=== PATIENT | male | born 1940 | race Caucasian/White ===

== ENCOUNTER 2018-06-07 13:33 | Emergency (ER) | payer OTHER ==
[2018-06-07 16:33] LABS: Albumin 4.3 g/dL (3.4-5.0); Bilirubin Direct 0.1 mg/dL (0-0.2); Bilirubin Total 0.5 mg/dL (0.2-1.0); Potassium 4.2 mmol/L (3.5-5.1); Protein, Total 7.4 g/dL (6.4-8.2)
[2018-06-07 16:41] LABS: Absolute Lymphocytes (CBC) 3.7 K/uL (0.7-4.9); Absolute Monocytes 0.6 K/uL (0.1-1.3); Absolute Neutrophil 4.7 K/uL (1.8-8.0); Basophils % 0.3 % (0-1.3); Eosinophils % 3.1 % (0-4.4); Hematocrit 46.2 % (39.6-49.0); Lymphocytes % 39.7 % (15.3-44.8); MPV 8.8 fL (7.6-11.3); Monocytes % 6.4 % (3.3-12.3); RBC Red Blood Cell Count 4.71 M/uL (4.33-5.43)
--- NOTE | 2018-06-07 17:34 | RAD REPORT ---
EXAM DESCRIPTION: CT - Abdomen Pelvis W Contrast - 06/07/2018 5:09 pm CLINICAL HISTORY: Abdominal pain/right lower quadrant pain COMPARISON: none. TECHNIQUE: Computed axial tomography of the abdomen pelvis was obtained. 100 cc Isovue-300 was admin istered intravenously. Oral contrast was not requested which limits evaluation of bowel. All CT scans are performed using dose optimization technique as appropriate and may include automated exposure control or mA/KV adjustment according to patient size. FINDINGS: Small hepatic cysts Spleen, pancreas, right kidney and adrenals appear unremarkable. Two left renal cysts measuring about 3.8 centimeters There is no evidence of diverticulitis. Normal appendix Mild bladder wall thickening. Mild prostate enlargement Duodenal diverticulum Tiny umbilical hernia. Spondylosis involves the lumbar spine resulting spinal stenosis IMPRESSION: Mild bladder wall thickening Left renal cysts.
--- NOTE | 2018-06-07 18:03 | ER ---
Nurse's Notes [facility] Name: Keshawn Ho Age: 77 yrs Sex: Male : 1940 Arrival Date: 06/07/2018 Time: 13:37 Bed 27 Private MD: Diagnosis: Unspecified abdominal pain Presentation: 06/07 13:38 Presenting complaint: Patient states: RLQ pain started Tuesday and has increased since sv then. c/o constipation and took MOM and helped "clear me out." Denies fever/chills, n/v. Transition of care: patient was not received from another setting of care. Onset of symptoms was June 05, 2018. Care prior to arrival: None. 13:38 Method Of Arrival: Ambulatory sv 13:38 Acuity: NOEL 3 sv 14:59 Risk Assessment: Do you want to hurt yourself or someone else? Patient reports no rv desire to harm self or others. Initial Sepsis Screen: Does the patient meet any 2 criteria? No. Patient's initial sepsis screen is negative. Does the patient have a suspected source of infection? No. Patient's initial sepsis screen is negative. Historical: - Allergies: 13:40 Ancef; sv - PMHx: 13:40 Hypertension; High Cholesterol; Thyroid problem; sv - PSHx: 13:40 Hernia repair; sinus; foot; eye; sv - Immunization history:: Adult Immunizations up to date. - Social history:: Smoking status: unknown. - Ebola Screening: : Patient negative for fever greater than or equal to 101.5 degrees Fahrenheit, and additional compatible Ebola Virus Disease symptoms Patient denies exposure to infectious person Patient denies travel to an Ebola-affected area in the 21 days before illness onset. Screenin:59 Abuse screen: Denies threats or abuse. Denies injuries from another. Nutritional rv screening: No deficits noted. Tuberculosis screening: No symptoms or risk factors identified. Fall Risk None identified. Assessment: 14:57 General: Appears in no apparent distress. comfortable. General: Behavior is calm, rv cooperative. Pain: Complains of pain in anterior aspect of right lateral abdomen Pain currently is 3 out of 10 on a pain scale. at worst was 9 out of 10 on a pain scale. Quality of pain is described as aching, sharp, Pain began suddenly, 1 day ago. Is intermittent. Neuro: Level of Consciousness is awake, alert, obeys commands, Oriented to person, place, time, situation. Cardiovascular: Capillary refill < 3 seconds. Respiratory: Airway is patent. GI: No signs and/or symptoms were reported involving the gastrointestinal system. : No signs and/or symptoms were reported regarding the genitourinary system. EENT: No signs and/or symptoms were reported regarding the EENT system. Derm: Skin is intact, Skin is. Musculoskeletal: No signs and/or symptoms reported regarding the musculoskeletal system. 17:09 Reassessment: Patient appears in no apparent distress at this time. Patient and/or rv family updated on plan of care and expected duration. Pain level reassessed. Patient is alert, oriented x 3, equal unlabored respirations, skin warm/dry/pink. Vital Signs: 13:40 BP 135 / 64; Pulse 69; Resp 18; Temp 97.8; Pulse Ox 98% ; Weight 122.47 kg; Height 6 sv ft. 3 in. (190.50 cm); Pain 3/10; 15:00 BP 128 / 66 LA; Pulse 58; Resp 16 S; Pulse Ox 96% on R/A; rv 15:30 BP 121 / 63 LA; Pulse 55; Resp 18 S; Pulse Ox 96% on R/A; rv 16:14 BP 112 / 65; Pulse 74; Resp 16; Pulse Ox 98% ; lt1 16:30 BP 122 / 52 LA; Pulse 62; Resp 16 S; Pulse Ox 100% on R/A; rv 17:30 BP 129 / 67 LA; Pulse 56; Resp 16 S; Pulse Ox 98% on R/A; rv 18:32 BP 143 / 71 LA; Pulse 62; Resp 16 S; Pulse Ox 96% on R/A; rv 13:40 Body Mass Index 33.75 (122.47 kg, 190.50 cm) sv ED Course: 13:37 Patient arrived in ED. tw3 13:39 Triage completed. sv 13:41 Arm band placed on. sv 14:59 Patient has correct armband on for positive identification. Bed in low position. Call rv light in reach. Side rails up X 1. Pulse ox on. NIBP on. 15:15 Jim Gonsalez PA is PHCP. [facility] 15:15 Tito Peter MD is Attending Physician. [facility] 15:53 Radiology exam delayed due to lab results not completed at this time. (BUN/Creatinine). [facility] 16:09 Initial lab(s) drawn, by me, sent to lab. Inserted saline lock: 20 gauge in right lt1 antecubital area, using aseptic technique. 16:[address] 2 17:[address] completed. Patient tolerated procedure well. Patient moved back from CT. ks 17:09 CT Abd/Pelvis - W/Contrast In Process Unspecified. EDMS 18:02 Tito Tran MD is Referral Physician. jmm 18:02 Isis Jeff MD is Referral Physician. jmm 18:33 No provider procedures requiring assistance completed. IV discontinued, bleeding rv controlled, No redness/swelling at site. Pressure dressing applied. Administered Medications: No medications were administered Outcome: 18:02 Discharge ordered by . [facility] 18:34 Discharged to home ambulatory. rv 18:34 Condition: good 18:34 Discharge instructions given to patient, Instructed on discharge instructions, follow up and referral plans. Demonstrated understanding of instructions, follow-up care. 18:34 Patient left the ED. rv Signatures: Dispatcher [employer] EDDC Olivia Delatorre, RN RN Jim Perez PA PA Alberto Lennon Tia tw3 Tala Edmonds 2 Pedro Bustamante, USHA RN Susan Navarrete lt1
--- NOTE | 2018-06-07 18:03 | EDPHYS ---
Physician Documentation [facility] Name: Keshawn Ho Age: 77 yrs Sex: Male : 1940 Arrival Date: 06/07/2018 Time: 13:37 Bed 27 Private MD: ED Physician Tito Peter HPI: 06/07 15:50 This 77 yrs old Male presents to ER via Ambulatory with complaints of Side jmm Pain. 15:50 The patient presents with abdominal pain right lower quadrant. Onset: The jmm symptoms/episode began/occurred 2 day(s) ago. Associated signs and symptoms: Pertinent positives: diarrhea. 15:50 The symptoms do not radiate. The symptoms are described as sharp. jmm 15:50 Modifying factors: The symptoms are alleviated by nothing, the symptoms are aggravated jmm by. This is a 77 year old male with a history of htn, hlp, that presents to the ED with complaints of right lower abdominal pain which is sharp and intermittent. Patient states he took milk of magnesium which gave him 5 loose bowel movements last night. Patient denies vomiting. Surgical history of inguinal hernia repair. . Historical: - Allergies: 13:40 Ancef; sv - PMHx: 13:40 Hypertension; High Cholesterol; Thyroid problem; sv - PSHx: 13:40 Hernia repair; sinus; foot; eye; sv - Immunization history:: Adult Immunizations up to date. - Social history:: Smoking status: unknown. - Ebola Screening: : Patient negative for fever greater than or equal to 101.5 degrees Fahrenheit, and additional compatible Ebola Virus Disease symptoms Patient denies exposure to infectious person Patient denies travel to an Ebola-affected area in the 21 days before illness onset. ROS: 15:50 Constitutional: Negative for fever, chills, and weight loss, Cardiovascular: Negative jmm for chest pain, palpitations, and edema, Respiratory: Negative for shortness of breath, cough, wheezing, and pleuritic chest pain. 15:50 Abdomen/GI: Positive for abdominal pain, diarrhea, constipation. 15:50 All other systems are negative. Exam: 15:50 Constitutional: This is a well developed, well nourished patient who is awake, alert, jmm and in no acute distress. Head/Face: atraumatic. Eyes: EOMI, no conjunctival erythema appreciated ENT: Moist Mucus Membranes Neck: Trachea midline, Supple Chest/axilla: Normal chest wall appearance and motion. Cardiovascular: Regular rate and rhythm. No edema appreciated Respiratory: Normal respirations, no respiratory distress appreciated 15:50 Back: Normal ROM Skin: General appearance color normal MS/ Extremity: Moves all extremities, no obvious deformities appreciated, no edema noted to the lower extremities Neuro: Awake and alert, normal gait Psych: Behavior is normal, Mood is normal, Patient is cooperative and pleasant 15:50 Abdomen/GI: Inspection: abdomen appears normal, Bowel sounds: normal, Palpation: soft, mild abdominal tenderness, in the right lower quadrant. Vital Signs: 13:40 BP 135 / 64; Pulse 69; Resp 18; Temp 97.8; Pulse Ox 98% ; Weight 122.47 kg; Height 6 sv ft. 3 in. (190.50 cm); Pain 3/10; 15:00 BP 128 / 66 LA; Pulse 58; Resp 16 S; Pulse Ox 96% on R/A; rv 15:30 BP 121 / 63 LA; Pulse 55; Resp 18 S; Pulse Ox 96% on R/A; rv 16:14 BP 112 / 65; Pulse 74; Resp 16; Pulse Ox 98% ; lt1 16:30 BP 122 / 52 LA; Pulse 62; Resp 16 S; Pulse Ox 100% on R/A; rv 17:30 BP 129 / 67 LA; Pulse 56; Resp 16 S; Pulse Ox 98% on R/A; rv 18:32 BP 143 / 71 LA; Pulse 62; Resp 16 S; Pulse Ox 96% on R/A; rv 13:40 Body Mass Index 33.75 (122.47 kg, 190.50 cm) sv MDM: 15:42 Patient medically screened. [facility] 18:01 Data reviewed: vital signs, nurses notes. Counseling: I had a detailed discussion with [facility] the patient and/or guardian regarding: the historical points, exam findings, and any diagnostic results supporting the discharge/admit diagnosis, lab results, radiology results, the need for outpatient follow up, to return to the emergency department if symptoms worsen or persist or if there are any questions or concerns that arise at home. ED course: I discussed the patient CT results along with need for follow up with urology and GI. Patient otherwise given strict return precautions. Patient understood and agrees with the plan of care. . 06/07 15:49 Order name: Basic Metabolic Panel; Complete Time: 16:42 [facility] 06/07 15:49 Order name: CBC with Diff; Complete Time: 17:07 [facility] 06/07 15:49 Order name: Creatinine for Radiology; Complete Time: 16:42 [facility] 06/07 15:49 Order name: Hepatic Function; Complete Time: 16:42 [facility] 06/07 15:49 Order name: Lipase; Complete Time: 16:42 [facility] 06/07 15:49 Order name: IV Saline Lock; Complete Time: 16:00 [facility] 06/07 15:49 Order name: Labs collected and sent; Complete Time: 16:00 [facility] 06/07 15:49 Order name: Urine Dipstick-Ancillary (obtain specimen); Complete Time: 16:00 [facility] 06/07 15:49 Order name: CT Abd/Pelvis - W/Contrast; Complete Time: 17:39 [facility] 06/07 17:27 Order name: Urine Dipstick--Ancillary (enter results) [id number] Administered Medications: No medications were administered Disposition: 06/08 07:27 Co-signature as Attending Physician, Tito Peter MD I agree with the assessment and wa plan of care. Disposition: 06/07/18 18:02 Discharged to Home. Impression: Unspecified abdominal pain. - Condition is Stable. - Discharge Instructions: Abdominal Pain, Adult. - Medication Reconciliation Form, Thank You Letter, Antibiotic Education, Prescription Opioid Use form. - Follow up: Private Physician; When: 2 - 3 days; Reason: Recheck today's complaints, Continuance of care, Re-evaluation by your physician. Follow up: Tito Tran MD; When: 2 - 3 days; Reason: Recheck today's complaints, Continuance of care, Re-evaluation by your physician. Follow up: Isis Jeff MD; When: 2 - 3 days; Reason: Recheck today's complaints, Continuance of care, Re-evaluation by your physician. Signatures: Dispatcher [employer] Olivia Hewitt, USHA RN Jim Perez PA PA jmm Appiah, William, MD MD wa Vicente, Ronaldo, RN RN rv Corrections: (The following items were deleted from the chart) 06/07 17:25 17:16 URINE DIPSTICK--ANCILLARY+U.LAB.BRZ ordered. EDIA EDMS 18:02 18:02 06/07/2018 18:02 Discharged to Home. Impression: Unspecified abdominal pain. jmm Condition is Stable. Forms are Medication Reconciliation Form, Thank You Letter, Antibiotic Education, Prescription Opioid Use. Follow up: Private Physician; When: 2 - 3 days; Reason: Recheck today's complaints, Continuance of care, Re-evaluation by your physician. [facility] 18:34 18:02 06/07/2018 18:02 Discharged to Home. Impression: Unspecified abdominal pain. rv Condition is Stable. Discharge Instructions: Abdominal Pain, Adult. Forms are Medication Reconciliation Form, Thank You Letter, Antibiotic Education, Prescription Opioid Use. Follow up: Private Physician; When: 2 - 3 days; Reason: Recheck today's complaints, Continuance of care, Re-evaluation by your physician. Follow up: Tito Tran; When: 2 - 3 days; Reason: Recheck today's complaints, Continuance of care, Re-evaluation by your physician. Follow up: Isis Jeff; When: 2 - 3 days; Reason: Recheck today's complaints, Continuance of care, Re-evaluation by your physician. [facility]
[2018-06-07 20:23] LABS: Urine Blood TRACE (NEG); Urine Glucose NEGATIVE (NEG); Urine Protein NEGATIVE (NEG); Urine pH 6.5 (5.0-7.0)
== END 2018-06-07 18:34 | disposition home or self-care (01) ==
LOC: ER 13:33
DX: R10.31 Right lower quadrant pain (principal); I10 Essential (primary) hypertension; Z88.8 Allergy status to other drugs, medicaments and biological substances
CPT/HCPCS: 85025; 80048; 36415; 80076; 81003; 83690; 74177; Q9967; 99284

== ENCOUNTER 2018-06-21 09:15 | Day surgery (SDC) | payer OTHER ==
[2018-06-19 09:04] LABS: Absolute Lymphocytes (CBC) 3.7 K/uL (0.7-4.9); Absolute Monocytes 0.6 K/uL (0.1-1.3); Absolute Neutrophil 3.4 K/uL (1.8-8.0); Basophils % 0.4 % (0-1.3); Eosinophils % 3.3 % (0-4.4); Hematocrit 47.7 % (39.6-49.0); Lymphocytes % 46.4 % (15.3-44.8); MPV 8.8 fL (7.6-11.3); RBC Red Blood Cell Count 4.82 M/uL (4.33-5.43)
[2018-06-19 09:21] LABS: Potassium 4.5 mmol/L (3.5-5.1)
--- NOTE | 2018-06-19 09:24 | RAD REPORT ---
EXAM DESCRIPTION: RAD - Chest Pa And Lat (2 Views) - 06/19/2018 8:48 am CLINICAL HISTORY: Preop chest, pending hernia repair COMPARISON: CT chest May 2015 TECHNIQUE: PA and lateral views of the chest were obtained. FINDINGS: The lungs are clear. Interstitial pattern is similar to the CT study. Heart size is mignon l and central vasculature is within normal limits. No pleural effusion or pneumothorax seen. No acu te bony finding noted. No aortic abnormality. IMPRESSION: No acute cardiopulmonary process.
[2018-06-19 09:51] LABS: Blood Morphology Comment NOT SEEN (NOT SEEN); Platelet Estimate ADEQ
--- NOTE | 2018-06-20 11:33 | EKG ---
Test Date: 2018-06-19 Test Time: 08:28:44 Ore Buyer: NAN MEASUREMENT RESULTS: Intervals: Rate: 73 NV: 152 QRSD: 92 QT: 406 QTc: 447 [place]: P: 40 NV: 152 QRS: -29 T: -5 INTERPRETIVE STATEMENTS: Normal sinus rhythm Normal ECG No previous ECG available for comparison Electronically Signed On 06-19-18 10:47:56 CDT by Ric Mendoza
[2018-06-21] MEDS ORDERED: CIPROFLOXACIN 400mg IV 400 MG/200 ML BAG IV ONE (10:03)
[2018-06-21] MEDS ORDERED: Ringers Lactate 1,000 ML IV ONE (10:03)
[2018-06-21] MEDS ORDERED: FENTANYL CITR 100 MCG/2 ML ONE (13:00)
[2018-06-21] MEDS ORDERED: MIDAZOLAM HCL 2 MG/2 ML INJ ONE (13:00)
[2018-06-21] MEDS ORDERED: LIDOCAINE 2% MPF 5 ML VIAL ONE (13:00)
[2018-06-21] MEDS ORDERED: PROPOFOL 200 MG/20 ML VIAL IV ONE (13:00)
[2018-06-21] MEDS ORDERED: ONDANSETRON 4 MG/2 ML VIAL ONE (13:01)
[2018-06-21] MEDS ORDERED: ROCURONIUM 50 MG/5 ML VIAL IV ONE (13:01)
--- NOTE | 2018-06-21 13:49 | P.BOP ---
Preoperative diagnosis: RLQ abd pain, incarcerated umbilcal hernia Postoperative diagnosis: same plus retrocecal appendicitis Primary procedure: 1. Diagnostic laparoscopy, 2. appendectomy, Secondary procedure: 3. Open repair of incarcerated umbilcal hernia Specimen: consuelo, hernia sac Findings: as above, see dictation Anesthesia: General Complications: None Transferred to: Recovery Room Condition: Good
[2018-06-21] MEDS ORDERED: GLYCOPYRROLATE 0.2 MG/ML SYR ONE ×4 (14:04→14:43)
[2018-06-21] MEDS ORDERED: NEOSTIGMINE 1 MG/ML -10 ML VIAL ONE (14:04)
[2018-06-21] MEDS: HYDROMORPHONE HCL 1 MG/ML INJ ONE ×4 (14:05→14:36)
--- NOTE | 2018-06-22 06:39 | OP ---
Date of Procedure: 06/21/2018 Surgeon: German Huston MD Preoperative Diagnoses: Right lower quadrant abdominal pain, incarcerated umbilical hernia. Postoperative Diagnoses: Right lower quadrant abdominal pain, incarcerated umbilical hernia, retroce sheree appendicitis asymmetrical in shape and color. Procedures: 1.Diagnostic laparoscopy. 2.Appendectomy. 3.Open repair of an incarcerated umbilical hernia. Anesthesia: General plus local. Specimen: Appendix and hernia sac. Findings: The patient has incarcerated omentum in the hernia, that was carefully fixed. At the area of the right lower quadrant, identify weak areas of the inguinal region with no bowel not ing coming through any hernias at this moment. Small indentation there may be the beginning of a sma ll tiny hernia. We cannot clearly identify it. Since when we put the camera through, it just does n ot go through a tunnel. On the area of the appendix, noted the mid appendix to be larger than the pr oximal and distal. Etiology of that is unknown. It is asymmetrical in shape and color with some inj ection and erythema over that area. For that reason, the appendix was removed. That is a retrocecal appendix. He has been having right lower quadrant pain in that area, so it is difficult to say that is not related to. The ascending, transverse, descending colon, no extraluminal masses. Small roland l with no extraluminal masses seen. The liver with no masses seen, at least extra capsule. The stom ach, soft and compressible. Indications: 78-year-old patient, who comes to us with right lower quadrant abdominal robert n, several times, severe enough to sent him to the ER. Etiology of that is unknown. Keep happening. He is concerned about appendicitis because his had a ruptured appendix and it was unable to be , so he is concerned about that. He is also being careful with heavy lifting, but he has n ot lifted anything and the pain continued back and poor. He also was found to have umbilical hernia. It is tender, although it does not really explain all the pain in the right lower quadrant. The be nefits, alternatives, and risks of diagnostic laparoscopy, repair of an incarcerated umbilical hernia with possible appendectomy were fully explained to the patient, which include but are not limited to infection, bleeding, damage to adjacent structures, anesthesia complication, negative appendix, nega tive exploration, recurrence, ME, even . He also understands this may not relieve any symptoms. He preferred the appendix to be removed we have any other than normal there since that m ay confuse in the future by not identifying properly and diagnosing properly right lower quadrant robert n. He signed a consent. Description Of Procedure: The patient was brought to the operating room, placed in supine position. Anesthesia was done without complication. Abdominal area was prepped and draped in usual sterile fa shion. Local anesthesia was applied followed by injection of the skin with local anesthetic. An inc ision was made in the skin. Incision was carried down to subcutaneous tissue. We noticed the umbili sheree hernia present. Hernia sac was removed from umbilical skin. The hernia sac was opened, noted in carcerated omentum. We reduced some of the adhesions of omentum to the hernia sac, reduced omentum _ viable, removed the hernia sac. Expanded the incision a little bit to allow us to clean th e fascia and I put a Kelsea trocar in that area. At that moment, I proceeded to do the diagnostic la p, with the finding described above. A 5-mm trocar was placed in the suprapubic area, another one in the left lower quadrant using same technique, which consisted of local anesthetic, sharp incision of the skin, and introduction of the trocars under direct vision. This allowed me to put a grasper in the right lower quadrant. We noticed it to have inguinal region. I do not see the canal itself. I do not see how it does not go into that area at this moment. So, the etiology of that to be the reason of the pain. It does not make sense. So, we looked at the pelvis, looked a t the rest of the abdomen. Please see my findings above. Appendix looked abnormal. It was retrocec al. It was erythematosus in the midline. It was larger than the rest of the appendix and it looked abnormal and needs to be removed. So, we created a window in the base of the appendix, transected th at with an Endo MARTIN 45 mm 3.5 and the mesoappendix with an Endo-MARTIN 45 mm 2.5 and further hemostasis was obtained with hemoclips, 5 mm. The area was irrigated. Suction was done. Hemostasis was obtain ed. No bleeding. No bowel leak. At that moment, I proceeded to remove the trocars under direct vis ion, deflated the pneumoperitoneum, closed the fascia with #1 Vicryl, irrigated subcutaneous tissue, closed that and also we closed the umbilical hernia with #1 Vicryl. Irrigated subcutaneous tissue, c losed that with 3-0 chromic and skin in a subcuticular fashion with Steri-Strip on top. Sponge count and instrument counts were correct. The patient tolerated the procedure well. The patient was sent to recovery in stable condition. ARVIN/RENETTA Voice ID: [id number] Report ID: [id number]
== END 2018-06-21 15:45 | disposition home or self-care (01) ==
LOC: OR 09:15
PROVIDERS: ATTEND Surgery
PROC: 0DTJ4ZZ Resection of Appendix, Percutaneous Endoscopic Approach (ICD-10-PCS; principal; 2018-06-21 12:45)
PROC: 0WQF0ZZ Repair Abdominal Wall, Open Approach (ICD-10-PCS; 2018-06-21 12:45)
DX: K37 Unspecified appendicitis (principal); K42.0 Umbilical hernia with obstruction, without gangrene; E78.00 Pure hypercholesterolemia, unspecified; E07.9 Disorder of thyroid, unspecified; I10 Essential (primary) hypertension; Z79.899 Other long term (current) drug therapy
CPT/HCPCS: 44970; 49587; 93005; 85025; 80048; 36415; 88302; 88304; 71046; J2704; J2710; J2250; J3010; J1170 ×2; J2405; J0744

== ENCOUNTER 2022-03-22 22:20 | Emergency (ER) | payer OTHER ==
--- OUTSIDE RECORDS SUMMARY | 2022-03-22 22:25 | XMS REPORT | Continuity of Care Document ---
:1940 Author Organization [facility] t Address [address] [place] [address] Care Team Providers Name Role Phone Grabiel, Olivia Arteaga Primary Care Physician Felecia RN, Stefania Mullen Attending Clinician Unavailable Only, Ang Db Test Attending Clinician Unavailable Stephanie Villatoro Attending Clinician STEPHANIE CASTANEDA Attending Clinician Unavailable Doctor Unassigned, Oriska Attending Clinician Unavailable Unknown, Attending Attending Clinician Unavailable UNKNOWN, ATTENDING Attending Clinician Unavailable MILAN BEDOLLA Attending Clinician Unavailable MICHELLE MISTRY Attending Clinician Unavailable Lab, Adc Fam Pob I Attending Clinician Unavailable Michelle Eckert Attending Clinician Payers Payer Name Policy Type Policy Number Effective Date Expiration Date S asael MEDICARE PART A [id number] 2007 \T\ B 00:00:00 Problems Condition Condition Condition Status Onset Resolution Last Treating Co mments Source Name Details Category Date Date Treatment Clinician Date No known No known Disease Unive rs active active ity of problems problems [facility] Allergies, Adverse Reactions, Alerts Allergy Allergy Status Severity Reaction(s) Onset Inactive Treating Comm ents Source Name Type Date Date Clinician cefazoli DA [facility] [place] [facility] cef[facility]oli DA Active U 2018- [facility] 7[facility] [place] [facility] Cefazoli Propensi Active Rash 2016-03 Univer s n Sodium ty to 2-06 ity of adverse 00:00: [place] reaction 00 Medical s Branch CEFAZOLI DRUG Active Rash 2016-03 Univers N SODIUM INGREDI 206 ity of 00:00: [place] 00 Medical Branch Social History Social Habit Start Date Stop Date Quantity Comments Source Exposure to Yes [facility] SARS-CoV-2 (event) Medica l Branch Sex Ass[birth year] At [birth year] [facility] 00:00:00 00:00:00 Medical Branch Smoking Status Start Date Stop Date Source Unknown if ever smoked [facility] Medications Ordered Filled Start Stop Current Ordering Indication Dosage Frequency Signature Comments Components Source Medication Medication Date Date Medication? Clinician (SIG) Name Name VITAMIN B 2016-03 Yes Take by Unive rs COMPLEX 2-07 mouth. ity of ORAL 15:55: [place] [address] Medical Branch allopurinol 2016-03 Yes 300mg Take 300 U nivers 300 mg 2-07 mg by ity of tablet 15:55: mouth [place] 16 daily. Medical Branch atorvastati 2016-03 Yes 20mg Take 20 mg Univers n 20 mg 2-07 by mouth ity of tablet 15:55: at [place] [address] bedtime. Medical Branch levothyroxi 2016-03 Yes 100ug Take 100 U nivers ne 100 mcg 2-07 mcg by ity of tablet 15:55: mouth [place] 16 every Medical morning. Branch lisinopril 2016-03 Yes 20mg Take 20 mg U nivers 20 mg 2-07 by mouth ity of tablet 15:55: daily. [place] [address] Medical Branch amitriptyli 2016-03 Yes 10mg Take 10 mg Univers ne 10 mg 2-07 by mouth ity of tablet 15:55: at [place] [address] bedtime. Medical Branch vitamin 2016-03 Yes 1000ug Take 1,000 Un marvin B-12 2-07 mcg by ity of (VITAMIN 15:55: mouth [place] B-12) 1,000 16 daily. Medica l mcg tablet Branch Garlic 2016-03 Yes Take by Univers 1,000 mg 2-07 mouth. ity of Cap 15:55: [place] 16 Medical Branch [place]-3 2016-03 Yes 1200mg Take 1,200 Un marvin Fatty Acids 2-07 mg by ity of (FISH OIL) 15:55: mouth. [place] 300 mg [facility] Medical Branch CALCIUM 2016-03 Yes 1000U Take 1,000 Uni vers CARBONATE/V 2-07 Units by ity of ITAMIN D3 15:55: mouth. [place] (VITAMIN 16 Medical D-3 ORAL) Branch VITAMIN B 2016-03 Yes Take by Unive rs COMPLEX 2-07 mouth. ity of ORAL 15:55: [place] [address] Medical Branch allopurinol 2016-03 Yes 300mg Take 300 U nivers 300 mg 2-07 mg by ity of tablet 15:55: mouth [place] 16 daily. Medical Branch atorvastati 2016-03 Yes 20mg Take 20 mg Univers n 20 mg 2-07 by mouth ity of tablet 15:55: at [place] [address] bedtime. Medical Branch levothyroxi 2016-03 Yes 100ug Take 100 U nivers ne 100 mcg 2-07 mcg by ity of tablet 15:55: mouth [place] 16 every Medical morning. Branch lisinopril 2016-03 Yes 20mg Take 20 mg U nivers 20 mg 2-07 by mouth ity of tablet 15:55: daily. [address] Branch amitriptyli 2016-03 Yes 10mg Take 10 mg Univers ne 10 mg 2-07 by mouth ity of tablet 15:55: at [place] [address] bedtime. Medical Branch vitamin 2016-03 Yes 1000ug Take 1,000 Un marvin B-12 2-07 mcg by ity of (VITAMIN 15:55: mouth [place] B-12) 1,000 16 daily. Medica l mcg tablet Branch Garlic 2016-03 Yes Take by Univers 1,000 mg 2-07 mouth. ity of Cap 15:55: [address] [place]-3 2016-03 Yes 1200mg Take 1,200 Un marvin Fatty Acids 2-07 mg by ity of (FISH OIL) 15:55: mouth. [place] 300 mg [facility] Medical Branch CALCIUM 2016-03 Yes 1000U Take 1,000 Uni vers CARBONATE/V 2-07 Units by ity of ITAMIN D3 15:55: mouth. [place] (VITAMIN 16 Medical D-3 ORAL) Branch vitamin 2016-03 Yes 1000ug Take 1,000 Un marvin B-12 2-07 mcg by ity of (VITAMIN 09:55: mouth [place] B-12) 1,000 16 daily. Medica l mcg tablet Branch Garlic 2016-03 Yes Take by Univers 1,000 mg 2-07 mouth. ity of Cap 09:55: [address] Branch [place]-3 2016-03 Yes 1200mg Take 1,200 Un marvin Fatty Acids 2-07 mg by ity of (FISH OIL) 09:55: mouth. [place] 300 mg [facility] Medical Branch CALCIUM 2016-03 Yes 1000U Take 1,000 Uni vers CARBONATE/V 2-07 Units by ity of ITAMIN D3 09:55: mouth. [place] (VITAMIN Medical D-3 ORAL) [place] VITAMIN B 2016-03 Yes Take by Unive rs COMPLEX 2-07 mouth. ity of ORAL 09:55: [place] [address] Medical Branch allopurinol 2016-03 Yes 300mg Take 300 U nivers 300 mg 2-07 mg by ity of tablet 09:55: mouth [place] 16 daily. Medical Branch atorvastati 2016-03 Yes 20mg Take 20 mg Univers n 20 mg 2-07 by mouth ity of tablet 09:55: at [place] [address] bedtime. Medical Branch levothyroxi 2016-03 Yes 100ug Take 100 U nivers ne 100 mcg 2-07 mcg by ity of tablet 09:55: mouth [place] 16 every Medical morning. Branch lisinopril 2016-03 Yes 20mg Take 20 mg U nivers 20 mg 2-07 by mouth ity of tablet 09:55: daily. [place] [address] Medical Branch amitriptyli 2016-03 Yes 10mg Take 10 mg Univers ne 10 mg 2-07 by mouth ity of tablet 09:55: at [place] [address] bedtime. Medical Branch vitamin 2016-03 Yes 1000ug Take 1,000 Un marvin B-12 2-07 mcg by ity of (VITAMIN 09:55: mouth [place] B-12) 1,000 16 daily. Medica l mcg tablet Branch Garlic 2016-03 Yes Take by Univers 1,000 mg 2-07 mouth. ity of Cap 09:55: [address] Branch [place]-3 2016-03 Yes 1200mg Take 1,200 Un marvin Fatty Acids 2-07 mg by ity of (FISH OIL) 09:55: mouth. [place] 300 mg [facility] Medical Branch CALCIUM 2016-03 Yes 1000U Take 1,000 Uni vers CARBONATE/V 2-07 Units by ity of ITAMIN D3 09:55: mouth. [place] (VITAMIN 16 Medical D-3 ORAL) Branch VITAMIN B 2016-03 Yes Take by Unive rs COMPLEX 2-07 mouth. ity of ORAL 09:55: [place] [address] Medical Branch allopurinol 2016-03 Yes 300mg Take 300 U nivers 300 mg 2-07 mg by ity of tablet 09:55: mouth [place] 16 daily. Medical Branch atorvastati 2016-03 Yes 20mg Take 20 mg Univers n 20 mg 2-07 by mouth ity of tablet 09:55: at [place] bedtime. Medical Branch levothyroxi 2016-03 Yes 100ug Take 100 U nivers ne 100 mcg 2-07 mcg by ity of tablet 09:55: mouth [place] 16 every Medical morning. Branch lisinopril 2016-03 Yes 20mg Take 20 mg U nivers 20 mg 2-07 by mouth ity of tablet 09:55: daily. [place] [address] Medical Branch amitriptyli 2016-03 Yes 10mg Take 10 mg Univers ne 10 mg 2-07 by mouth ity of tablet 09:55: at [place] [address] bedtime. Medical Branch vitamin 2016-03 Yes 1000ug Take 1,000 Un marvin B-12 2-07 mcg by ity of (VITAMIN 09:55: mouth [place] B-12) 1,000 16 daily. Medica l mcg tablet Branch Garlic 2016-03 Yes Take by Univers 1,000 mg 2-07 mouth. ity of Cap 09:55: [address] Branch [place]-3 2016-03 Yes 1200mg Take 1,200 Un marvin Fatty Acids 2-07 mg by ity of (FISH OIL) 09:55: mouth. [place] 300 mg [facility] Medical Branch CALCIUM 2016-03 Yes 1000U Take 1,000 Uni vers CARBONATE/V 2-07 Units by ity of ITAMIN D3 09:55: mouth. [place] (VITAMIN 16 Medical D-3 ORAL) Branch VITAMIN B 2016-03 Yes Take by Unive rs COMPLEX 2-07 mouth. ity of ORAL 09:55: [place] [address] Medical Branch allopurinol 2016-03 Yes 300mg Take 300 U nivers 300 mg 2-07 mg by ity of tablet 09:55: mouth [place] 16 daily. Medical Branch atorvastati 2016-03 Yes 20mg Take 20 mg Univers n 20 mg 2-07 by mouth ity of tablet 09:55: at [place] [address] bedtime. Medical Branch levothyroxi 2016-03 Yes 100ug Take 100 U nivers ne 100 mcg 2-07 mcg by ity of tablet 09:55: mouth [place] [address] every Medical morning. Branch lisinopril 2016-03 Yes 20mg Take 20 mg U nivers 20 mg 2-07 by mouth ity of tablet 09:55: daily. [place] [address] Medical Branch amitriptyli 2016-03 Yes 10mg Take 10 mg Univers ne 10 mg 2-07 by mouth ity of tablet 09:55: at [place] [address] bedtime. Medical Branch vitamin 2017- Yes 1000ug Take 1,000 Un marvin B-12 2-07 mcg by ity of (VITAMIN 09:55: mouth [place] B-12) 1,000 16 daily. Medica l mcg tablet Branch Garlic 2016-03 Yes Take by Univers 1,000 mg 2-07 mouth. ity of Cap 09:55: [address] Branch [place]-3 2016-03 Yes 1200mg Take 1,200 Un marvin Fatty Acids 2-07 mg by ity of (FISH OIL) 09:55: mouth. [place] 300 mg [facility] Medical Branch CALCIUM 2016-03 Yes 1000U Take 1,000 Uni vers CARBONATE/V 2-07 Units by ity of ITAMIN D3 09:55: mouth. [place] (VITAMIN [address] [place] [address] D-3 ORAL) [place] VITAMIN B 2016-03 Yes Take by Unive rs COMPLEX 2-07 mouth. ity of ORAL 09:55: [place] [address] Medical Branch allopurinol 2016-03 Yes 300mg Take 300 U nivers 300 mg 2-07 mg by ity of tablet 09:55: mouth [place] 16 daily. Medical Branch atorvastati 2016-03 Yes 20mg Take 20 mg Univers n 20 mg 2-07 by mouth ity of tablet 09:55: at [place] [address] bedtime. Medical Branch levothyroxi 2016- Yes 100ug Take 100 U nivers ne 100 mcg 2-07 mcg by ity of tablet 09:55: mouth [place] [address] every Medical morning. Branch lisinopril 2016-03 Yes 20mg Take 20 mg U nivers 20 mg 2-07 by mouth ity of tablet 09:55: daily. [place] [address] Medical Branch amitriptyli 2016-03 Yes 10mg Take 10 mg Univers ne 10 mg 2-07 by mouth ity of tablet 09:55: at [place] 16 bedtime. Medical Branch Immunizations Ordered Filled Immunization Date Status Comments Sour e Immunization Name Name SARS-COV-2 COVID-19 2020-05-31 Completed Unive rsity of PFIZER VACCINE 00:00:00 [facility] SARS-COV-2 COVID-19 2020-05-31 Completed Unive rsity of PFIZER VACCINE 00:00:00 [facility] SARS-COV-2 COVID-19 2020-05-31 Completed Unive rsity of PFIZER VACCINE 00:00:00 [facility] SARS-COV-2 COVID-19 2020-05-31 Completed Unive rsity of PFIZER VACCINE 00:00:00 [facility] SARS-COV-2 COVID-19 2020-05-10 Completed Unive rsity of PFIZER VACCINE 00:00:00 [facility] SARS-COV-2 COVID-19 2020-05-10 Completed Unive rsity of PFIZER VACCINE 00:00:00 [facility] SARS-COV-2 COVID-19 2020-05-10 Completed Unive rsity of PFIZER VACCINE 00:00:00 [facility] SARS-COV-2 COVID-19 2020-05-10 Completed Unive rsity of PFIZER VACCINE 00:00:00 [facility] Procedures Procedure Date / Time Performed Performing Clinician [facility] e ASSIGNMENT OF BENEFITS 2021-04-06 19:06:10 Doctor Unassigned, No [facility] Name Medical Branch Encounters Start End Encounter Admission Attending Care Care Encounter Source Date/Time Date/Time Type Type Clinicians Facility Department ID 2021-04-07 2021-04-07 Letter LAMAR Izquierdo [id number] Univers 00:00:00 00:00:00 (Out) Stefania BALDWIN [id number] it y of [facility] [id number] [place] [id number] [address] 2021-04-06 2021-04-06 Laboratory Only, Ang Db Test [facility] 1.2.8 40.114 [id number] Univers 13:15:00 13:30:00 Only [facility] [id number] ity of [place] [id number] [place] as FELICIANO?BLEA [id number] Tn dicleeanne JACKSON [address] [place] [facility] 2021-04-06 2021-04-06 Outpatient R TONYA [facility] [id number] Univers 13:15:00 13:15:00 STEPHANIE ity o f [facility] 2021-04-06 2021-04-06 Orders Doctor LAMAR [id number] Univers 00:00:00 00:00:00 Only Unassigned, NICOLASA [id number] ity of Oriska [facility] [id number] [place] [id number] [address] 2020-11-28 2020-11-28 Laboratory Only, Ang Db Test [facility] 1.2.8 40.114 [id number] Univers 17:56:39 18:11:39 Only Unknown, [facility] [id number] ity of [place] [id number] [place] as Feliciano?Blea [id number] Tn yuval [address] Medical Office [facility] 2020-11-28 2020-11-28 Outpatient R PERFECTO, [facility] [id number] Univers 18:00:00 18:00:00 ATTENDING [facility] 2020-05-31 2020-05-31 Outpatient R CHIOMA, [facility] [id number] Univers 13:40:00 13:40:00 MILAN [facility] 2020-05-10 2020-05-10 Outpatient R CHIOMA [facility] [id number] Univers 13:40:00 13:40:00 MILAN [facility] 2020-01-06 2020-01-06 Outpatient R FEDE [facility] [id number] Univers 15:00:00 15:00:00 MICHELLE [facility] 2020-01-06 2020-01-06 Laboratory Lab, Adc Fam Pob I [facility] 1.2. 840.114 [id number] Univers 13:35:42 13:55:42 Only Fede Michelle [facility] [id number] ity of [place] [id number] [place] as Professio [id number] Tn yuval [address] Office [address] [facility] 2020-01-06 2020-01-06 Letter Doctor LAMAR [id number] Univers 00:00:00 00:00:00 (Out) Unassigned, NICOLASA [id number] ity of [place]iska [facility] [id number] [place] [phone] [place] [address] Branch Results This patient has no known results.
[2022-03-22] MEDS ORDERED: KETOROLAC 30 MG/ML INJ ONE (23:02)
[2022-03-22] MEDS ORDERED: LIDOCAINE 4% PATCH ONE (23:03)
[2022-03-22 23:14] LABS: Urine Blood 1+ (Negative); Urine Glucose Negative (Negative); Urine Protein Negative (Negative); Urine pH 5.5 (5.0-7.0)
[2022-03-22 23:43] LABS: Albumin 4.1 g/dL (3.4-5.0); Bilirubin Total 0.4 mg/dL (0.2-1.0); Potassium 4.4 mmol/L (3.5-5.1); Protein, Total 7.4 g/dL (6.4-8.2)
[2022-03-23 00:12] LABS: Absolute Lymphocytes (CBC) 5.9 K/uL (0.7-4.9); Hematocrit 46.4 % (39.6-49.0); Lymphocytes % 49.1 % (15.3-44.8); MCV 98.5 fL (80-100); MPV 9.1 fL (7.6-11.3); RBC Red Blood Cell Count 4.71 M/uL (4.33-5.43)
[2022-03-23 00:13] LABS: Urine Bacteria None Seen /HPF (<20); Urine RBC <5 /HPF (None Seen)
--- NOTE | 2022-03-23 00:33 | EDPHYS ---
Physician Documentation [facility] Name: Keshawn Ho Age: 81 yrs Sex: Male : 1940 Arrival Date: 03/22/2022 Time: 22:27 Bed 12 Private MD: ED Physician Jomar Larkin HPI: 03/22 22:45 This 81 yrs old Male presents to ER via Ambulatory with complaints of Back Pain. cp 22:45 The patient presents with pain that is acute, with no known mechanism of injury. The cp symptoms are located in the left low back and left mid back. Onset: The symptoms/episode began/occurred 3 week(s) ago. 22:45 The pain does not radiate. Associated signs and symptoms: Pertinent negatives: cp abdominal pain, chest pain, constipation, dysuria, fever, weakness. Historical: - Allergies: 03/23 00:45 Ancef; tw5 - PMHx: 00:45 High Cholesterol; Hypertension; Thyroid problem; tw5 - Immunization history:: Flu vaccine is not up to date. - Social history:: Smoking status: Patient denies any tobacco usage or history of. ROS: 03/22 22:50 Constitutional: Negative for body aches, chills, fever, poor PO intake. cp 22:50 Eyes: Negative for injury, pain, redness, and discharge. cp 22:50 Cardiovascular: Negative for chest pain, edema, palpitations. 22:50 Respiratory: Negative for cough, shortness of breath, wheezing. 22:50 Abdomen/GI: Negative for abdominal pain, nausea, vomiting, and diarrhea, constipation, anorexia, black/tarry stool, rectal bleeding. 22:50 Back: Positive for pain at rest, pain with movement, of the left low back and left mid back. 22:50 Skin: Negative for rash. 22:50 Neuro: Negative for altered mental status, dizziness, headache, numbness, weakness. 22:50 All other systems are negative. Exam: 22:55 Constitutional: The patient appears in no acute distress, alert, awake, well developed, cp well nourished, uncomfortable. 22:55 Head/Face: Normocephalic, atraumatic. cp 22:55 Chest/axilla: Inspection: normal. 22:55 Cardiovascular: Rate: normal. 22:55 Respiratory: the patient does not display signs of respiratory distress, Respirations: normal, no use of accessory muscles, no retractions, labored breathing, is not present, Breath sounds: are clear throughout, no decreased breath sounds, no stridor, no wheezing. 22:55 Abdomen/GI: Inspection: abdomen appears normal, Bowel sounds: active, all quadrants, Palpation: abdomen is soft and non-tender, in all quadrants. 22:55 Back: pain, that is moderate, of the left low back and left mid back, ROM is normal, vertebral tenderness, is not appreciated. 22:55 Skin: cellulitis, is not appreciated, no rash present. 22:55 Neuro: Orientation: to person, place \T\ time. Mentation: is normal, Motor: moves all fours, strength is normal, Sensation: is normal, Gait: is steady. Vital Signs: 22:29 BP 138 / 62; Pulse 66; Resp 18; Temp 97.4; Pulse Ox 97% on R/A; Weight 117.93 kg; tw5 Height 6 ft. 3 in. (190.50 cm); Pain 10/10; 22:29 Body Mass Index 32.50 (117.93 kg, 190.50 cm) tw5 MDM: 22:38 Patient medically screened. cp 23:00 Differential diagnosis: Cholelithiasis Pyelonephritis Renal Infarction ruptured disc, cp spinal injury, Ureterolithiasis. 03/23 00:30 Data reviewed: vital signs, nurses notes, lab test result(s), radiologic studies, CT cp scan. 00:30 Response to treatment: the patient's symptoms have markedly improved after treatment, cp and as a result, I will discharge patient. 03/22 22:52 Order name: CBC with Diff cp 03/23 00:15 Interpretation: Normal except: WBC 12.10; JENSEN% 39.8; LYM% 49.1; LYMA 5.9. cp 03/22 22:52 Order name: CMP; Complete Time: 00:15 cp 03/23 00:15 Interpretation: Normal except: CL 108; BUN 31; GFR 65. cp 03/22 22:52 Order name: Lipase; Complete Time: 00:15 cp 03/23 00:28 Interpretation: Within normal limits: LIP 176. cp 03/22 22:52 Order name: Urine Microscopic Only; Complete Time: 00:15 cp 03/22 23:14 Order name: Urine Dipstick-Ancillary; Complete Time: 00:15 EDMS 03/23 00:15 Interpretation: Normal except: UBLD 1+. cp 03/23 00:15 Order name: CBC Smear Scan EDMS 03/22 22:52 Order name: IV Saline Lock; Complete Time: 23:15 cp 03/22 22:52 Order name: Labs collected and sent; Complete Time: 23:15 cp 03/22 22:52 Order name: Urine Dipstick-Ancillary (obtain specimen); Complete Time: 23:15 cp 03/22 22:52 Order name: CT Stone Protocol cp Administered Medications: 03/22 23:08 Drug: TORadol - (ketorolac) 15 mg Route: IVP; Site: right antecubital; mb9 23:37 Follow up: Response: No adverse reaction mb9 23:14 Drug: Lidoderm Patch 5 % (700 mg/patch) 1 patches Route: Topical; Site: affected area; mb9 23:37 Follow up: Response: No adverse reaction mb9 03/23 00:49 Drug: Baclofen 10 mg Route: PO; tw5 00:49 Follow up: Response: No adverse reaction tw5 Disposition: 03:40 Co-signature as Attending Physician, Jomar Larkin MD I agree with the assessment and rt plan of care. I reviewed the patient's care provided by the Advanced Practice Provider and agree with the diagnosis and treatment plan. Disposition Summary: 03/23/22 00:32 Discharge Ordered Location: Home cp Problem: new cp Symptoms: have improved cp Condition: Stable cp Diagnosis - Low back pain cp Followup: cp - With: Private Physician - When: 2 - 3 days - Reason: Recheck today's complaints Discharge Instructions: - Discharge Summary Sheet cp - Acute Back Pain, Adult cp - Heat Therapy cp - Back Exercises cp Forms: - Medication Reconciliation Form cp - Thank You Letter cp - Antibiotic Education cp - Prescription Opioid Use cp Prescriptions: - Mobic 7.5 mg Oral Tablet - take 1 tablet by ORAL route once daily take with food; 20 tablet; Refills: 0, cp Product Selection Permitted - Lidoderm 5 % Topical adhesive patch,medicated - apply 1 patch by TOPICAL route once daily As needed; 10 patch; Refills: 0, cp Product Selection Permitted - methocarbamol 500 mg Oral Tablet - take 1 tablet by ORAL route 3 times per day As needed; 30 tablet; Refills: 0, cp Product Selection Permitted Signatures: Dispatcher [employer] Florian Quiros PA PA cp Wood, Tiffany tw5 Elizabeth Castillo RN RN mb9 Jomar Larkin MD MD rt
--- NOTE | 2022-03-23 00:33 | ER ---
Nurse's Notes [facility] Name: Keshawn Ho Age: 81 yrs Sex: Male : 1940 Arrival Date: 03/22/2022 Time: 22:27 Bed 12 Private MD: Diagnosis: Low back pain Presentation: 03/22 22:29 Chief complaint: Patient states: "I have been having really sharp pain for the past tw5 three weeks, but today it got worse. The pain is left side, last year something similar happened and my TUNNEL MAN thought maybe it was a kidney stone.". Coronavirus screen: Vaccine status: Patient reports receiving the 2nd dose of the covid vaccine. [employer]. Ebola Screen: Patient negative for fever greater than or equal to 101.5 degrees Fahrenheit, and additional compatible Ebola Virus Disease symptoms Patient denies exposure to infectious person. Patient denies travel to an Ebola-affected area in the 21 days before illness onset. Initial Sepsis Screen: Does the patient meet any 2 criteria? No. Patient's initial sepsis screen is negative. Does the patient have a suspected source of infection? No. Patient's initial sepsis screen is negative. Risk Assessment: Do you want to hurt yourself or someone else? Patient reports no desire to harm self or others. Onset of symptoms is unknown. 22:29 Method Of Arrival: Ambulatory tw5 22:29 Acuity: NOEL 3 tw5 Triage Assessment: 22:29 General: Appears uncomfortable, Behavior is calm, cooperative, appropriate for age, tw5 patient prefers to stand for relief. Musculoskeletal: Range of motion: intact in all extremities. Historical: - Allergies: 03/23 00:45 Ancef; tw5 - PMHx: 00:45 High Cholesterol; Hypertension; Thyroid problem; tw5 - Immunization history:: Flu vaccine is not up to date. - Social history:: Smoking status: Patient denies any tobacco usage or history of. Screenin/09 22:41 [facility] ED Fall Risk Assessment (Adult) History of falling in the last 3 months, mb9 including since admission No falls in past 3 months (0 pts) Confusion or Disorientation No (0 pts) Intoxicated or Sedated No (0 pts) Impaired Gait No (0 pts) Mobility Assist Device Used No (0 pt) Altered Elimination No (0 pt) Score/Fall Risk Level 0 - 2 = Low Risk Oriented to surroundings, Maintained a safe environment, Educated pt \\T\\ family on fall prevention, incl call for assistance when getting out of bed. Abuse screen: Denies threats or abuse. Nutritional screening: No deficits noted. Tuberculosis screening: No symptoms or risk factors identified. Assessment: 22:49 General: Appears uncomfortable, Behavior is cooperative. Pain: Complains of pain in mb9 back Pain does not radiate. Pain currently is 9 out of 10 on a pain scale. Quality of pain is described as sharp, shooting, stabbing. Neuro: Figueroa Agitation-Sedation Scale (RASS): 0 - Alert and Calm Level of Consciousness is awake, alert, obeys commands, Oriented to person, place, time, situation, Appropriate for age. Cardiovascular: Patient's skin is warm and dry. Rhythm is regular. Respiratory: Airway is patent Respiratory effort is even, unlabored, Respiratory pattern is regular, symmetrical. GI: Abdomen is round non-distended, Bowel sounds present X 4 quads. Abd is soft and non tender X 4 quads. Patient currently denies nausea. : Denies burning with urination, urinary frequency, urgency. : Reports pain in left flank(s). EENT: Derm: Skin is pink, warm \\T\\ dry. Musculoskeletal: Range of motion: intact in all extremities. 23:16 Reassessment: pt taken to CT via wheelchair. mb9 23:37 Reassessment: No changes from previously documented assessment. Patient and/or family mb9 updated on plan of care and expected duration. Pain level reassessed. Patient is alert, oriented x 3, equal unlabored respirations, skin warm/dry/pink. 03/23 00:45 Reassessment: Patient appears in no apparent distress at this time. Patient is alert, tw5 oriented x 3, equal unlabored respirations, skin warm/dry/pink. Vital Signs: 03/22 22:29 BP 138 / 62; Pulse 66; Resp 18; Temp 97.4; Pulse Ox 97% on R/A; Weight 117.93 kg; tw5 Height 6 ft. 3 in. (190.50 cm); Pain 10/10; 22:29 Body Mass Index 32.50 (117.93 kg, 190.50 cm) tw5 ED Course: 22:27 Patient arrived in ED. ja2 22:29 Arm band placed on. tw5 22:31 Triage completed. tw5 22:34 Florian Peres PA is PHCP. cp 22:34 Jomar Larkin MD is Attending Physician. cp 22:41 Elizabeth Castillo, RN is Primary Nurse. mb9 22:42 Bed in low position. Call light in reach. Side rails up X 1. Client placed on mb9 continuous cardiac and pulse oximetry monitoring. NIBP monitoring applied. 22:42 No provider procedures requiring assistance completed. mb9 23:00 Inserted saline lock: 20 gauge in right antecubital area, using aseptic technique. mb9 Blood collected. 23:15 CBC with Diff Sent. mb9 23:15 CMP Sent. mb9 23:15 Lipase Sent. mb9 23:15 Urine Microscopic Only Sent. mb9 23:31 CT Stone Protocol In Process Unspecified. EDMS 03/23 00:45 IV discontinued, intact, bleeding controlled, No redness/swelling at site. Pressure tw5 dressing applied. Administered Medications: 03/22 23:08 Drug: TORadol - (ketorolac) 15 mg Route: IVP; Site: right antecubital; mb9 23:37 Follow up: Response: No adverse reaction mb9 23:14 Drug: Lidoderm Patch 5 % (700 mg/patch) 1 patches Route: Topical; Site: affected area; mb9 23:37 Follow up: Response: No adverse reaction mb9 03/23 00:49 Drug: Baclofen 10 mg Route: PO; tw5 00:49 Follow up: Response: No adverse reaction tw5 Medication: 03/22 22:42 VIS not applicable for this client. mb9 Outcome: 03/23 00:32 Discharge ordered by . cp 00:45 Discharged to home ambulatory. tw5 00:45 Condition: stable 00:45 Discharge instructions given to patient, family, Instructed on discharge instructions, follow up and referral plans. medication usage, Demonstrated understanding of instructions, follow-up care, medications, Prescriptions given X 3. 00:50 Patient left the ED. tw5 Signatures: Dispatcher [employer] EDPA Florian Peres PA PA cp Alexander, Jessica ja2 [employer] tw5 Elizabeth Castillo, USHA RN mb9 Corrections: (The following items were deleted from the chart) 03/22 23:16 11:08 TORadol - (ketorolac) 15 mg IVP in right antecubital mb9 mb9 23:16 23:15 Response: No adverse reaction mb9 mb9
[2022-03-23] MEDS ORDERED: BACLOFEN 10 MG TAB ONE (00:48)
[2022-03-23 00:56] LABS: Blood Morphology Comment NOT SEEN (NOT SEEN); Platelet Estimate ADEQ; White Blood Cell Scan OK (OK)
[2022-03-23 01:03] VITALS: BP 138/62; TEMP 97.4; O2SAT 97
--- NOTE | 2022-03-23 14:12 | RAD REPORT ---
EXAM DESCRIPTION: CT - Stone Protocol - 03/23/2022 7:18 am CLINICAL HISTORY: 81 years Male left mid back pain COMPARISON: None TECHNIQUE: Images were obtained and axial, sagittal, and coronal planes. No intravenous contrast was administered. This exam was performed according to our departmental dose-optimization program which includes use of Automated Exposure Control, adjustment of the mA and/or kV according to patient size and/or use of i terative reconstruction technique. FINDINGS: No abnormality involving the liver, spleen, gallbladder, or adrenal glands bilaterally. Pu nctate calcifications involving the pancreas indicating chronic pancreatitis. No evidence for mass or cyst. No obstructing renal or ureteral calculi bilaterally. No hydronephrosis bilaterally. Left renal cyst. Unremarkable bladder. Prior appendectomy. No bowel obstruction, perforation, or inflammation. Previously noted diverticulit is distal left colon has resolved. Calcification abdominal aorta with no dilatation seen. No adenopathy or abnormal fluid collections se en. No abnormality lower lungs bilaterally. No acute osseous abnormality. IMPRESSION: No obstructing renal or ureteral calculi bilaterally. No hydronephrosis bilaterally. Fin dings indicating chronic pancreatitis. Electronically signed by: Karen Flynn MD 03/23/2022 12:18 AM HEAD OF MATHEMATICS Due to temporary technical issues with the PACS/Fluency reporting system, reports are being signed by the in house radiologists without review as a courtesy to insure prompt reporting. The interpreting radiologist is fully responsible for the content of the report.
== END 2022-03-23 00:50 | disposition home or self-care (01) ==
LOC: ER 22:20
DX: M54.50 Low back pain, unspecified (principal); E78.00 Pure hypercholesterolemia, unspecified; I10 Essential (primary) hypertension; Z88.1 Allergy status to other antibiotic agents
CPT/HCPCS: 85025; 36415; 83690; 80053; 76377; 74176; J2001; 81003; 81015; 96374; 99284